=== PATIENT | female | born 1960 | race African-American/Black ===

== ENCOUNTER → 2017-06-22 | Outpatient (CLI) | payer OTHER ==
--- NOTE | ~2017-06-22 | CR151 ---
[facility] A Service of [facility] & [facility] RADIOLOGY TEXT RESULTS PATIENT: HONEY TIM LOCATION: [facility] : 58 UNIT #: [id number] AGE: [address]: ANGELA CADE APRN SEX: F ORDER DR: [id number] [facility] [address]. [place], [place] [address] [id number] O MR#: [id number] Acc #: [id number] NAME: HONEY TIM : 1960 SEX: F STUDY DATE/TIME: 06/22/2017 15:51 UNIT: [facility] ROOM: STUDY DESCRIPTION: CR Hip Min 2 Views Rt Attending Physician: Angela Cade Referring Physician: Angela Cade Ordering Physician: Angela Cade Primary Care Physician: Angela Cade MEDICAL IMAGING REPORT This report is preliminary unless electronic signature is present EXAM Right hip, 06/22/2017, 1551 hours. HISTORY Patient fell at home 4 times in 1 day on April 04, 2017, complaining of chronic right hip pain radiating to right thigh. COMPARISON CT abdomen and pelvis, 07/11/2009. No prior hip film. FINDINGS AP pelvis and frog lateral view right hip demonstrate overall normal bone density. There is no fracture or dislocation. There is mild superolateral joint space loss at the right hip more severe on the left. There is no fracture or spurring on the right. There is mild spurring on the left with subarticular lucency at the superolateral left acetabulum suggesting osteoarthritis at the left hip. The sacrum and sacroiliac joints appear normal. IMPRESSION 1. Minimal superolateral joint space loss on the right hip with no fracture or spurring. 2. Superolateral joint space loss with mild spurring and subarticular lucency at the superolateral left acetabulum. This suggest osteoarthritis of the left hip. The sacrum and sacroiliac joints are normal. Dictated by... Macie Sawyer M.D. THIS IS AN ELECTRONICALLY VERIFIED REPORT Macie Sawyer M.D. at 06/23/2017 5:52 PM SMM/bd [facility]. [facility] A Service of [facility] & [facility] RADIOLOGY TEXT RESULTS PATIENT: HONEY TIM LOCATION: [facility] #: [id number] : 58 UNIT #: [id number] AGE: [address]: ANGELA CADE APRN SEX: F ORDER DR: TD: 06/23/2017 15:23 JOB #: [id number] MEDICAL IMAGING REPORT Page 1 of 1 COPY
== END | disposition home or self-care (01) ==
LOC: CRAD 15:41
DX: M25.551 Pain in right hip (principal); M76.892 Other specified enthesopathies of left lower limb, excluding foot
CPT/HCPCS: 73502